=== PATIENT | male | born 1955 | race Caucasian/White ===

== ENCOUNTER 2016-12-20 11:20 | Emergency (ER) | payer OTHER ==
[~2016-12-20] VITALS: Ht 188 cm; Wt 75.0 kg
[~2016-12-20 11:20] MED LIST: TAB-TAB PO
[2016-12-20 11:23] VITALS: BP 183/101; PULSE 66; RESP 20; TEMP 98; O2SAT 97
--- NOTE | 2016-12-20 11:38 | PD ---
HPI Chief Complaint: Musculoskeletal Complaint Time Seen by Provider: 11:38 Travel History International Travel<30 days: No Contact w/Intl Traveler<30days: No Traveled to known affect area: No History of Present Illness HPI Patient is a 61 year old male presenting with right knee pain. He states that he was unloading a truck one week ago and had some twisting does not relate exact mechanism. He heard a "pop". She's had some swelling and pain since. Denies loss of range of motion. Denies weakness and paresthesia. Denies hip or ankle pain. The pain is anterior. Pain does not radiate. He denies fever and chills. He has been weightbearing denies instability however this worsens his pain. [facility] Social History Alcohol Use: Yes (one pack per day) Tobacco Use: No Substance Use: Yes Allergies-Medications (Allergen,Severity, Reaction): Coded Allergies: No Known Allergies (Unverified , 06/14/13) Reported Meds & Prescriptions Reported Meds & Active Scripts Active Tramadol (Tramadol HCl) 50 Mg Tab 50 Mg PO Q6H PRN Review of Systems General / Constitutional: No: Fever Cardiovascular: Positive: Edema (right knee) Musculoskeletal: Positive: Other (see the history of present illness) Neurologic: No: Weakness, Focal Abnormalities, Paresthesia, Sensory Disturbance Physical Exam Narrative GENERAL: Well-developed and well-nourished adult male in no acute distress. SKIN: Warm and dry. Good turgor without tenting. HEAD: Normocephalic and atraumatic. EYES: PERRL bilaterally, 5mm. EOMI bilaterally. No injection or icterus present. No proptosis. Lids without edema or erythema. NECK: Supple, no midline tenderness, crepitus or step-offs. Trachea midline, no JVD. No cervical or facial lymphadenopathy. CARDIOVASCULAR: Regular rate and rhythm without murmurs, rubs, clicks or gallops. Dorsalis pedis and posterior tibial pulses 2+ bilaterally. Capillary refill less than 2 seconds distal tip of all toes of right foot. No pedal edema. RESPIRATORY: Clear to auscultation bilaterally with symmetrical rise and fall, no distress or use of accessory muscles. GASTROINTESTINAL: Non-tender, non-distended. Normal bowel sounds all 4 quadrants. No masses or organomegaly present. MUSCULOSKELETAL: Right knee has edema anteriorly and superiorly. No warmth or erythema or ecchymosis. Normal range of motion. Some patellar tenderness, no fibular head tenderness. Pain palpation of the diffuse tibial plateau. No crepitus or step-offs. Normal range of motion in the knee. No increased laxity of the knee. Negative Grady for the right knee. There is some laxity with palpation of the patellar tendon however when comparing the patient' s anatomy to the left side this appears to be close to his baseline. Antalgic gait. Patient freely moving all four extremities spontaneously. Extremities without clubbing or cyanosis. No obvious deformities. NEUROLOGIC: CN II-XII grossly intact. Awake and alert. Strength 5/5 bilateral knee flexion, knee extension, plantar and dorsiflexion. Sensation intact distal tip of all toes of right foot. Normal speech. PSYCHIATRIC: Appropriate mood and affect; insight and judgment normal. Data Data Last Documented VS Vital Signs Date Time Temp Pulse Resp B/P Pulse Ox O2 Delivery O2 Flow Rate FiO2 12/20/16 11:23 98.0 66 20 183/101 97 Room Air Orders Knee, Complete (4vws) (12/20/16 11:37) Ice/Cold Pack (12/20/16 11:37) Splint Or Brace Apply/Monitor (12/20/16 12:30) Crutches (12/20/16 12:30) Immobilizer Knee 20 Inch (12/20/16 ) MDM Medical Decision Making Medical Screen Exam Complete: Yes Emergency Medical Condition: Yes Interpretation(s) Last 24 hours Impressions Knee X-Ray 12/20/16 1137 Signed Impressions: Service Date/Time: Tuesday, December 20, 2016 12:01 - CONCLUSION: 1. Large joint effusion from uncertain etiology. No fracture is seen. 2. Mild tricompartmental osteoarthritis. Eugenio López MD Differential Diagnosis Knee sprain versus knee fracture versus patellar tendon rupture versus knee effusion Narrative Course Patient is a 61-year-old male who is afebrile, nontoxic presenting with right knee pain after a twisting injury with a "pop"one week prior. This patient is neurovascular intact and can move the knee through normal range of motion and is ambulatory. It edema consistent with likely effusion is present. No clear sign of meniscal injury. Patient does have some laxity of the patellar tendon however this is very similar when compared to the left knee which appears to be his normal anatomy. Ordered x-ray of the knee which showed a large joint effusion and tricompartmental arthritis, mild. Patient was placed in a knee brace and given crutches and recommend follow-up with orthopedist on Thursday to have evaluation for patellar tendon rupture. This is not warranted emergently as he has been in a store and weightbearing and this is one week or greater old.See discharge paperwork for further instructions. The plan was discussed with the patient who acknowledged their understanding and agreement. Reinforced the follow-up with primary care is critically important. Patient instructed on emergent conditions that should prompt return to ED. Diagnosis Primary Impression: Effusion, left knee Additional Impression: Patellar tendon rupture Qualified Code: S86.811A - Patellar tendon rupture, right, initial encounter Referrals: Christian Marley Jr., MD Patient Instructions: General Instructions, Knee Sprain (ED), Tendon Rupture ( ED) Additional Instructions: Take medications as prescribed Your medications may cause drowsiness. Do not take with alcohol or sedatives. Do not operate a motor vehicle or heavy machinery while on medication. Apply ice every 1 to 2 hours as needed for pain Avoid maneuvers that aggravate pain Keep knee immobilizer on while being active or using extremity Use crutches when walking to avoid pressure on joint Elevate when at rest Follow-up with orthopedist on Thursday Return to the ED for any acute worsening of symptoms Med/Other Pt SpecificInfo: Prescription(s) given Scripts Tramadol 50 Mg Tab50 Mg PO Q6H PRN (PAIN) #12 TAB Ref 0 Prov:Hero Torres MD 12/20/16 Disposition: 01 DISCHARGE HOME Condition: Stable Eugenio Hunt III Dec 20, 2016 11:38
--- NOTE | 2016-12-20 12:26 | RADRPT ---
EXAM DATE/TIME: 12/20/2016 12:01 [facility] COMPARISON: No previous studies available for comparison. INDICATIONS : Pain from stepping into hole. MEDICAL HISTORY : Edema. SURGICAL HISTORY : Drainage. ENCOUNTER: Initial ACUITY: 1 week PAIN SCORE: 6/10 LOCATION: Right knee. FINDINGS: 4 views of the right knee demonstrate no fracture or dislocation. There is a large joint effusion. Os teophytes are present on the patella and in both the medial and lateral compartment. There is mild me dial joint space narrowing. No soft tissue abnormality or radiopaque foreign body is identified. CONCLUSION: 1. Large joint effusion from uncertain etiology. No fracture is seen. 2. Mild tricompartmental osteoarthritis. Eugenio López MD on December 20, 2016 at 12:23 Board Certified Radiologist. This report was verified electronically.
[2016-12-20] MEDS ORDERED: TRAM50TA PO ×2 (13:06→13:09)
== END 2016-12-20 13:28 | disposition home or self-care (01) ==
LOC: NEPB 11:20
DX: M25.461 Effusion, right knee (principal); S86.811A Strain of other muscle(s) and tendon(s) at lower leg level, right leg, initial encounter; M13.861 Other specified arthritis, right knee; X50.1XXA Overexertion from prolonged static or awkward postures, initial encounter
CPT/HCPCS: 73564; 99283; E0113; L1830